=== PATIENT | male | born 1990 | race Asian ===

== ENCOUNTER 2017-12-30 11:14 | Outpatient (CLI) | payer OTHER ==
--- NOTE | 2017-12-30 13:28 | ULT ---
HEPATIC ULTRASOUND WITH VASCULAR DUPLEX AND COLOR AND SPECTRAL DOPPLER IMAGING: History: 27-year-old male with history of hepatitis C. FINDINGS: Liver echogenicity is fairly uniform. No focal liver masses. Common bile duct is 0.5 cm. Visualized g allbladder is unremarkable. No splenomegaly. Both kidneys are echogenic, evidence for nonspecific hep atic parenchymal disease. VASCULAR DUPLEX WITH COLOR AND SPECTRAL DOPPLER IMAGING: There is antegrade hepatic venous and portal venous flow. IMPRESSION: Echogenic renal cortices bilaterally, evidence for nonspecific chronic renal disease. Antegrade hepat ic and portal venous flow. No focal liver masses or ductal dilatation. POS: [facility]
== END 2017-12-30 11:15 | disposition home or self-care (01) ==
LOC: SCSULT 11:14
PROVIDERS: ATTEND Family Medicine
DX: B18.1 Chronic viral hepatitis B without delta-agent (principal); N18.9 Chronic kidney disease, unspecified
CPT/HCPCS: 76705

== ENCOUNTER 2019-01-07 09:14 | Outpatient (CLI) | payer OTHER ==
--- NOTE | 2019-01-07 11:34 | ULT ---
ULTRASOUND ABDOMEN COMPLETE: DATE: 01/07/19 HISTORY: 28-year-old male with hepatitis B. FINDINGS: The gallbladder has normal wall thickness and has no evidence of gallstones or sludge. The hepatic e chogenicity is normal. The kidneys have normal echogenicity, and there is no hydronephrosis. There is no splenomegaly. There is no abdominal aortic aneurysm. No free fluid is identified. The inferi or vena cava is visualized. The pancreas is visualized, although ultrasound is relatively insensitive for pancreatic pathology compared to CT and MRI. There is no biliary dilation. The common duct calib er is 2 mm. IMPRESSION: Normal. jn [] POS: [facility]
== END 2019-01-07 09:15 | disposition home or self-care (01) ==
LOC: SCSULT 09:14
PROVIDERS: ATTEND Family Medicine
DX: B19.10 Unspecified viral hepatitis B without hepatic coma (principal); N18.9 Chronic kidney disease, unspecified
CPT/HCPCS: 93975